=== PATIENT | female | born 1990 | race American Indian/Alaskan Native ===

== ENCOUNTER 2020-03-12 12:43 | Emergency (ER) | payer MEDICAID ==
[2020-03-12 13:24] VITALS: BP 126/80
[2020-03-12] MEDS ORDERED: IBUPROFEN 600 MG TAB PO ONE (15:01)
--- NOTE | 2020-03-12 15:04 | Emergency Department Report ---
ED Upper Extremity Inj HPI - General Chief Complaint: Extremity Injury, Upper Stated Complaint: RT HAND PAIN EXTREME/CANT MOVE Time Seen by Provider: 03/12/20 14:53 Source: patient Mode of arrival: Ambulatory Limitations: No Limitations - History of Present Illness Initial Comments: 29-year-old -[place]ones[place] female presents to the emergency room for right wrist pain and swelling. Patient states that she slipped and fell yesterday while pumping gas and braced herself with her right wrist. Patient reports that she did ice yesterday and this morning. Patient reports she did not take anything for pain. Patient has no past medical history she does have surgical history of ACL of the right knee fallopian tube removal and breast reduction. She has an allergy to latex. MD Complaint: Injury to:: right, wrist Onset/Timin -: days(s) Other Extremity Injury: Hand: Right, Wrist: Right Handedness: right Severity scale (0 -10): 9 Improves With: immobilization Context: fall, injury - Related Data Previous Rx's Medication Instructions Recorded Last Taken Type Ibuprofen [Motrin 600 MG tab] 600 mg PO Q8H PRN #15 tablet 03/12/20 Unknown Rx Allergies Allergy/AdvReac Type Severity Reaction Status Date / Time latex Allergy Rash Verified 03/12/20 13:23 ED Review of Systems ROS: Stated complaint: RT HAND PAIN EXTREME/CANT MOVE Other details as noted in HPI Comment: All other systems reviewed and negative ED Past Medical Hx - Surgical History Hx Appendectomy: Yes Additional Surgical History: ACL to R knee, fallopian tube removed, breast reduction - Social History Smoking Status: Never Smoker Substance Use Type: None - Medications Home Medications: Home Medications Medication Instructions Recorded Confirmed Last Taken Type Ibuprofen [Motrin 600 MG tab] 600 mg PO Q8H PRN #15 tablet 03/12/20 Unknown Rx ED Physical Exam - General Limitations: No Limitations General appearance: alert - Head Head exam: Present: atraumatic, normocephalic - ENT ENT exam: Present: mucous membranes moist - Neck Neck exam: Present: normal inspection - Respiratory Respiratory exam: Present: normal lung sounds bilaterally - Cardiovascular Cardiovascular Exam: Present: regular rate - Expanded Upper Extremity Exam Right Shoulder Exam: Present: normal inspection Upper Arm exam: Present: normal inspection Elbow exam: Present: normal inspection Forearm Wrist exam: Present: normal inspection Hand Wrist exam: Present: tenderness, swelling Vascular: Present: normal capillary refill - Neurological Exam Neurological exam: Present: alert, oriented X3 - Psychiatric Psychiatric exam: Present: normal affect, normal mood - Skin Skin exam: Present: warm, dry, intact, normal color. Absent: rash ED Course Vital Signs 03/12/20 13:19 Temperature 97.8 F Pulse Rate 95 H Respiratory 18 Rate Blood Pressure 126/80 O2 Sat by Pulse 100 Oximetry ED Medical Decision Making - Radiology Data Radiology results: report reviewed Patient: ADI HANSON MR#: [id number] 38 : 1990 Acct:[id number] Age/Sex: 29 / F ADM Date: 03/12/20 Loc: ED Attending Dr: Ordering Physician: ISABEL ZAMORA Date of Service: 03/12/20 Procedure(s): XR wrist 3+V RT Accession Number(s): [id number] cc: ISABEL ZAMORA Fluoro Time In Minutes: RIGHT WRIST 3 VIEWS INDICATION: Slip and fall brace with right hand. COMPARISON: None. IMPRESSION: No acute osseous or soft tissue abnormality. No significant DJD. Signer Name: Sonido Newell Jr, MD Signed: 03/12/2020 3:42 PM Workstation Name: [id number] Transcribed By: TTR Dictated By: SONIDO NEWELL JR, MD Electronically Authenticated By: SONIDO NEWELL JR, MD Signed Date/Time: 03/12/201541 DD/ 41 TD/TT: - Medical Decision Making 29-year-old -[place]ones[place] female presents to the emergency room for right wrist pain and swelling. Patient states that she slipped and fell yesterday while pumping gas and braced herself with her right wrist. Patient reports that she did ice yesterday and this morning. Patient reports she did not take a nything for pain. Patient has no past medical history she does have surgical history of ACL of the right knee fallopian tube removal and breast reduction. She has an allergy to latex. X-ray of right wrist and ibuprofen has been ordered. Critical care attestation.: If time is entered above; I have spent that time in minutes in the direct care of this critically ill patient, excluding procedure time. ED Disposition Clinical Impression: Right wrist injury Disposition: TO HOME OR SELFCARE Is pt being admited?: No Does the pt Need Aspirin: No Condition: Stable Instructions: Wrist Injury (ED), Wrist Sprain (ED) Additional Instructions: X-ray was negative for any acute abnormalities. I believe that you have a wrist sprain I would like for you to wear your wrist brace take your ibuprofen and follow-up with a primary care provider or orthopedic provider. Prescriptions: Ibuprofen [Motrin 600 MG tab] 600 mg PO Q8H PRN #15 tablet PRN Reason: Pain Referrals: PRIMARY CARE, [Primary Care Provider] - 3-5 Days ELIF IRWIN MD [Staff Physician] - 3-5 Days Forms: Work/School Release Form(ED)
--- NOTE | 2020-03-12 15:47 | XRay Report ---
RIGHT WRIST 3 VIEWS INDICATION: Slip and fall brace with right hand. COMPARISON: None. IMPRESSION: No acute osseous or soft tissue abnormality. No significant DJD. Signer Name: Sonido Newell Jr, MD Signed: 03/12/2020 3:42 PM Workstation Name: [id number]
== END 2020-03-12 16:55 | disposition home or self-care (01) ==
LOC: ED 12:43
DX: S69.91XA Unspecified injury of right wrist, hand and finger(s), initial encounter (principal); Z90.49 Acquired absence of other specified parts of digestive tract; Z98.890 Other specified postprocedural states; Z79.1 Long term (current) use of non-steroidal anti-inflammatories (NSAID); Z91.040 Latex allergy status; W01.0XXA Fall on same level from slipping, tripping and stumbling without subsequent striking against object, initial encounter; Y93.89 Activity, other specified; Y92.89 Other specified places as the place of occurrence of the external cause; Y99.8 Other external cause status